=== PATIENT | female | born 1990 | race Caucasian/White ===

== ENCOUNTER → 2019-04-05 | Outpatient (CLI) | payer OTHER | LOC: MC.RAD 09:39 | DX: N63.21 Unspecified lump in the left breast, upper outer quadrant (principal) ==

== ENCOUNTER → 2020-01-14 | Outpatient (CLI) | payer OTHER | LOC: MC.RAD 09:49 | DX: C50.412 Malignant neoplasm of upper-outer quadrant of left female breast (principal); N63.20 Unspecified lump in the left breast, unspecified quadrant ==

== ENCOUNTER 2020-01-18 06:50 | Day surgery (SDC) | payer OTHER ==
[~2020-01-18] VITALS: Ht 172.7 cm; Wt 57.3 kg
--- NOTE | 2020-01-18 07:00 | NUR ---
Patient admitted to room 6 ambulatory and urine test done. Oriented to room and spouse with patient. Consent signed. Dr. Negrete here to see the patient.
--- NOTE | 2020-01-18 07:10 | NUR ---
HCGU resulted negative and radiology called for patient to proceed to radiology.
--- NOTE | 2020-01-18 07:50 | NUR ---
Patient returns to room from radiology. Spouse in room.
[2020-01-18 08:25] VITALS: BP 106/60; PULSE 77; TEMP 97.6
--- NOTE | 2020-01-18 10:04 | NUR ---
Patient returns to radiology per wheelchair. Spouse remains in the room.
--- NOTE | 2020-01-18 10:40 | NUR ---
Patient returns to room from radiology per wheelchair. Ambulatory to the bathroom. Resting on cart. Warm blankets on. Spouse in room.
--- NOTE | 2020-01-18 10:54 | NUR ---
Patient taken to the PACU per cart to have block placed for post op pain control.
[2020-01-18] MEDS ORDERED: NORCO 325 MG-51 TAB PO (13:11)
[2020-01-18 13:31] VITALS: TEMP 98.6
[2020-01-18 13:45] VITALS: BP 117/73; PULSE 66
--- NOTE | 2020-01-18 13:45 | NUR ---
Patient returns to room 6 per cart and is awake and alert. Bandaid covering right port a catheter site dry. Dressing dry on the left upper breast area dry. IV fluids infusing #20G LW and site is free of redness. Siderails up x2 and call light in reach. Spouse in room.
[2020-01-18 14:00] VITALS: BP 112/69; PULSE 70
--- NOTE | 2020-01-18 14:00 | NUR ---
Resting and spouse in room.
[2020-01-18 14:15] VITALS: BP 113/71; PULSE 69
--- NOTE | 2020-01-18 14:15 | NUR ---
Eating crackers and drinking water.
[2020-01-18 14:30] VITALS: BP 117/69; PULSE 67
--- NOTE | 2020-01-18 14:30 | NUR ---
Tolerated water and crackers. Denies pain or nausea.
--- NOTE | 2020-01-18 14:35 | NUR ---
IV to INT and assisted up to the bathroom and is able to void and returns to room. Tolerated activity well. Spouse remains in the room.
--- NOTE | 2020-01-18 14:45 | NUR ---
INT discontinued and site is free of redness. Given dismissal instructions and voices understanding of home cares and provided port a catheter instructions.
--- NOTE | 2020-01-18 14:51 | NUR ---
Patient dismissed to home driven by spouse and taken to the front door per wheelchair and assisted into vehicle by Vernon TERRY.
== END 2020-01-18 14:51 | disposition home or self-care (01) ==
LOC: SDCO 06:50
DX: C50.412 Malignant neoplasm of upper-outer quadrant of left female breast (principal); Z17.0 Estrogen receptor positive status [ER+]; Z80.3 Family history of malignant neoplasm of breast
CPT/HCPCS: A9541; C1788; J0690; J1100; J1644; J2250; J2405; J2704; J2795; J3010; J7120; Q9968

== ENCOUNTER → 2020-02-01 | Outpatient (CLI) | payer OTHER ==
[~2020-02-01] MED LIST: NORCO 325 MG-51 TAB PO
== END ==
LOC: COL.VAS 08:35
DX: C50.412 Malignant neoplasm of upper-outer quadrant of left female breast (principal)

== ENCOUNTER → 2021-01-26 | Outpatient (CLI) | payer OTHER | LOC: MC.RAD 12:58 | DX: Z98.890 Other specified postprocedural states (principal); C50.412 Malignant neoplasm of upper-outer quadrant of left female breast ==